=== PATIENT | male | born 1990 | race Caucasian/White ===

== ENCOUNTER 2016-09-25 15:09 | Emergency (ER) | payer SELFPAY ==
[~2016-09-25] VITALS: Ht 180.3 cm; Wt 92.0 kg
[~2016-09-25 15:09] MED LIST: DICL75 PO
[2016-09-25 15:15] VITALS: BP 151/90; PULSE 71; RESP 16; TEMP 98.5; O2SAT 98
--- NOTE | 2016-09-25 16:04 | PD ---
HPI Chief Complaint: Laceration/Skin Injury Time Seen by Provider: 15:59 Travel History International Travel<30 days: No Contact w/Intl Traveler<30days: No Traveled to known affect area: No History of Present Illness HPI 25-year-old male presents to the emergency room for evaluation of laceration to the left lateral eyebrow that occurred earlier today. Patient was standing about 3 feet up on a ladder when the ladder broke. He fell backwards and landed on his buttocks. He denies hitting his head or loss of consciousness. The ladder subsequently fell on top of him striking him in the face and cutting his eye. Patient went home and took a shower and realized that the laceration may need to be repaired so he came to the emergency room. Last tetanus was 2 months ago. Denies chronic medical conditions or daily medications. PFSH Past Medical History Medical History: Denies Significant Hx Diminished Hearing: No Tetanus Vaccination: < 5 Years ?: Not Past Surgical History Surgical History: No Previous Surgery Social History Alcohol Use: Yes Tobacco Use: No Substance Use: No Allergies-Medications (Allergen,Severity, Reaction): Coded Allergies: No Known Allergies (Verified , 09/25/16) Reported Meds & Prescriptions Reported Meds & Active Scripts Active No Active Prescriptions or Reported Medications Review of Systems Except as stated in HPI: all other systems reviewed are Neg Physical Exam Narrative GENERAL: Well-nourished, well-developed male in no acute distress. Afebrile. Ambulatory. SKIN: Focused skin assessment warm/dry. There is a 3 cm well approximated laceration to the left lateral eyebrow. Nonbleeding. HEAD: Normocephalic. EYES: No scleral icterus. No injection or drainage. EARS: Bilateral pinnae and external canals appear within normal limits. Bilateral tympanic membranes without erythema, dullness or perforation. No hemotympanum. NECK: Supple, trachea midline. No JVD or lymphadenopathy. CARDIOVASCULAR: Regular rate and rhythm without murmurs, gallops, or rubs. RESPIRATORY: Breath sounds equal bilaterally. No accessory muscle use. Data Data Last Documented VS Vital Signs Date Time Temp Pulse Resp B/P Pulse Ox O2 Delivery O2 Flow Rate FiO2 09/25/16 15:15 98.5 71 16 151/90 98 MDM Medical Decision Making Medical Screen Exam Complete: Yes Emergency Medical Condition: Yes Medical Record Reviewed: Yes Differential Diagnosis Laceration, abrasion, skin tear Narrative Course 25-year-old male presents to the emergency room for evaluation of laceration to the left lateral eyebrow that occurred earlier today. Patient states the ladder struck him on the face. He denies loss of consciousness. Tetanus is up- to-date. Physical exam reveals a 3 cm well-approximated laceration to the left lateral eyebrow. Laceration was thoroughly cleansed and repaired, see procedure note for details. Patient discharged with wound care instructions and told to follow-up with a primary care physician or return for worsening symptoms. He understands and agrees to plan. Diagnosis Primary Impression: Laceration of left eyebrow without complication Qualified Code: S01.112A - Laceration of left eyebrow without complication, initial encounter Referrals: Primary Care Physician Patient Instructions: General Instructions, Laceration (ED) Additional Instructions: Rest and drink plenty of fluids. Keep wound clean and dry. Apply triple antibiotic ointment daily. Sutures out in 5 days. Take ibuprofen with food as directed, as needed for pain. Follow-up with a primary care physician. Return to the emergency room for worsening symptoms. Scripts No Active Prescriptions or Reported Meds Disposition: 01 DISCHARGE HOME Condition: Stable Di Manzanares Sep 25, 2016 16:04
== END 2016-09-25 16:46 | disposition home or self-care (01) ==
LOC: PHEFT 15:09
DX: S01.112A Laceration without foreign body of left eyelid and periocular area, initial encounter (principal); W20.8XXA Other cause of strike by thrown, projected or falling object, initial encounter
CPT/HCPCS: 12013

== ENCOUNTER 2016-09-30 16:04 | Emergency (ER) | payer OTHER ==
[~2016-09-30] VITALS: Ht 182.9 cm; Wt 96.1 kg
[2016-09-30 16:12] VITALS: BP 141/76; PULSE 62; RESP 18; TEMP 98.4; O2SAT 99
--- NOTE | 2016-09-30 16:18 | PD ---
HPI Chief Complaint: Laceration/Skin Injury Time Seen by Provider: 16:11 Travel History International Travel<30 days: No Contact w/Intl Traveler<30days: No Traveled to known affect area: No History of Present Illness HPI The patient is a 25-year-old male who presents emergency department for suture removal. The patient has sutures placed on September 25, is here for removal. He denies any dehiscence of the wound and denies any bleeding or drainage. Tetanus is up-to-date. He denies any other complaints. History Past Medical History Medical History: Denies Significant Hx Past Surgical History Surgical History: No Previous Surgery Social History Alcohol Use: Yes (WEEKENDS) Tobacco Use: No Allergies-Medications (Allergen,Severity, Reaction): Coded Allergies: No Known Allergies (Verified , 09/25/16) Reported Meds & Prescriptions Reported Meds & Active Scripts Active No Active Prescriptions or Reported Medications Review of Systems HENT: No: Headaches, Lightheadedness Gastrointestinal: No: Nausea, Vomiting Skin: Positive Other (patient is here for suture removal, denies any dehiscence or bleeding) Neurologic: No: Headache, Change in Mentation Physical Exam Narrative GENERAL: Awake, alert, very pleasant 25-year-old male who appears his stated age and is in no acute respiratory distress. SKIN: Focused skin assessment warm/dry. [address] in the left eyebrow in a linear transverse laceration which is well-healed without any dehiscence. HEAD: Atraumatic. Normocephalic. [address] in the left eyebrow with no dehiscence or drainage. EYES: Pupils equal and round. No scleral icterus. No injection or drainage. NECK: Trachea midline. No JVD. MUSCULOSKELETAL: No obvious deformities. No clubbing. No cyanosis. No edema. NEUROLOGICAL: Awake and alert. No obvious cranial nerve deficits. Motor grossly within normal limits. Normal speech. PSYCHIATRIC: Appropriate mood and affect; insight and judgment normal. Data Data Last Documented VS Vital Signs Date Time Temp Pulse Resp B/P Pulse Ox O2 Delivery O2 Flow Rate FiO2 09/30/16 16:12 98.4 62 18 141/76 99 MDM Medical Decision Making Medical Screen Exam Complete: Yes Emergency Medical Condition: Yes Medical Record Reviewed: Yes Differential Diagnosis Differential diagnosis includes wound reevaluation, wound dehiscence, laceration recheck, suture removal. Narrative Course The patient's sutures were removed with a #11 incisional blade and Adson's forceps. There is no wound dehiscence. The patient tolerated the procedure without difficulty. Polysporin was applied to the wound. Diagnosis Primary Impression: Visit for suture removal Referrals: Primary Care Physician as needed Patient Instructions: General Instructions, Stitches Removal (ED) Departure Forms: Tests/Procedures Additional Instructions: Follow-up with your primary physician. Wound care instructions. Return if symptoms worsen or progress. Scripts No Active Prescriptions or Reported Meds Disposition: 01 DISCHARGE HOME Condition: Stable Edy Shelton MD Sep 30, 2016 16:18
== END 2016-09-30 16:30 | disposition home or self-care (01) ==
LOC: PHEFT 16:04
DX: S01.112D Laceration without foreign body of left eyelid and periocular area, subsequent encounter (principal); Z48.02 Encounter for removal of sutures; X58.XXXD Exposure to other specified factors, subsequent encounter
CPT/HCPCS: 99281

== ENCOUNTER 2017-02-12 18:29 | Emergency (ER) | payer SELFPAY ==
[~2017-02-12] VITALS: Ht 180.3 cm; Wt 93.0 kg
[2017-02-12 18:30] VITALS: BP 145/87; PULSE 53; RESP 16; TEMP 98.1; O2SAT 100
[2017-02-12] MEDS ORDERED: SODIUM CHLOR 0.9% 1000 ML INJ 1,000 ML IV ONE (19:23)
[2017-02-12] MEDS ORDERED: SODIUM CHLORIDE 0.9% FLUSH 10 ML FLUSH IVF PRN (19:30)
--- NOTE | 2017-02-12 19:38 | PD ---
HPI Chief Complaint: GI Complaint Time Seen by Provider: 19:35 Travel History International Travel<30 days: No Contact w/Intl Traveler<30days: [place] Traveled to: [place] Traveled to known affect area: Yes History of Present Illness HPI 26-year-old male presents to the emergency department for evaluation of diarrhea for one week. Patient just came back from [facility] yesterday. He states he felt feverish and dizzy up until 2 days ago, but those symptoms have resolved. He is able to eat without difficulty. He reports at least 5 episodes of diarrhea in the past 24 hours. He states his stool is liquid at this time. No mucus or blood in his stool. He does complain of abdominal cramping and burning. Patient denies any chest pain or shortness of breath. No current fevers or chills. No current headache or visual changes. No dizziness. No nausea or vomiting. Patient states that he did take some antidiarrheal medication which did help briefly, but the diarrhea return. He has no chronic medical problems and takes no prescribed medications. Severity is moderate. No exacerbating factors. Anti-diarrhea medication will temporarily alleviate the symptoms. [facility] Past Medical History Medical History: Denies Significant Hx Diminished Hearing: No Influenza Vaccination: No Past Surgical History Surgical History: No Previous Surgery Social History Alcohol Use: Yes (social) Tobacco Use: No Substance Use: No Allergies-Medications (Allergen,Severity, Reaction): Coded Allergies: No Known Allergies (Verified Adverse Reaction, Unknown, 02/12/17) Reported Meds & Prescriptions Reported Meds & Active Scripts Active No Active Prescriptions or Reported Medications Review of Systems Except as stated in HPI: all other systems reviewed are Neg Physical Exam Narrative GENERAL: Well-nourished, well-developed male patient, ambulatory. Afebrile. SKIN: Focused skin assessment warm/dry. HEAD: Normocephalic. Atraumatic. EYES: No scleral icterus. No injection or drainage. NECK: Supple, trachea midline. No JVD or lymphadenopathy. CARDIOVASCULAR: Regular rate and rhythm without murmurs, gallops, or rubs. RESPIRATORY: Breath sounds equal bilaterally. No accessory muscle use. Lungs sounds are clear to auscultation GASTROINTESTINAL: Abdomen soft, non-tender, nondistended. No abdominal tenderness to palpation. MUSCULOSKELETAL: No cyanosis, or edema. BACK: Nontender without obvious deformity. No CVA tenderness. Data Data Last Documented VS Vital Signs Date Time Temp Pulse Resp B/P (MAP) Pulse Ox O2 Delivery O2 Flow Rate FiO2 02/12/17 18:30 98.1 53 16 145/87 (106) 100 Room Air Orders Orders Complete Blood Count With Diff (02/12/17 19:23) Comprehensive Metabolic Panel (02/12/17 19:23) Lipase (02/12/17:23) Iv Access Insert/Monitor (02/12/17:) Ecg Monitoring (02/12/17:23) Oximetry (02/12/17:23) Sodium Chlor 0.9% 1000 Ml Inj (Ns 1000 M (02/12/17 19:23) Sodium Chloride 0.9% Flush (Ns Flush) (02/12/17 19:30) Enteric Path (Stool) (02/12/17 19:23) Stool Ova And Parasite Screen (02/12/17 19:23) Ciprofloxacin (Cipro) (02/12/17 21:15) Labs Laboratory Tests Test 02/12/17 20:00 White Blood Count 7.8 TH/MM3 Red Blood Count 5.12 MIL/MM3 Hemoglobin 15.6 GM/DL Hematocrit 45.0 % Mean Corpuscular Volume 88.0 FL Mean Corpuscular Hemoglobin 30.4 PG Mean Corpuscular Hemoglobin Concent 34.6 % Red Cell Distribution Width 13.0 % Platelet Count 207 TH/MM3 Mean Platelet Volume 8.8 FL Neutrophils (%) (Auto) 54.1 % Lymphocytes (%) (Auto) 30.3 % Monocytes (%) (Auto) 12.1 % Eosinophils (%) (Auto) 2.9 % Basophils (%) (Auto) 0.6 % Neutrophils # (Auto) 4.2 TH/MM3 Lymphocytes # (Auto) 2.4 TH/MM3 Monocytes # (Auto) 0.9 TH/MM3 Eosinophils # (Auto) 0.2 TH/MM3 Basophils # (Auto) 0.0 TH/MM3 CBC Comment DIFF FINAL Differential Comment Blood Urea Nitrogen 12 MG/DL Creatinine 1.12 MG/DL Random Glucose 81 MG/DL Total Protein 7.3 GM/DL Albumin 4.0 GM/DL Calcium Level 8.9 MG/DL Alkaline Phosphatase 75 U/L Aspartate Amino Transf (AST/SGOT) 27 U/L Alanine Aminotransferase (ALT/SGPT) 42 U/L Total Bilirubin 0.5 MG/DL Sodium Level 139 MEQ/L Potassium Level 3.5 MEQ/L Chloride Level 104 MEQ/L Carbon Dioxide Level 28.1 MEQ/L Anion Gap 7 MEQ/L Estimat Glomerular Filtration Rate 78 ML/MIN Lipase 248 U/L [facility] Medical Decision Making Medical Screen Exam Complete: Yes Emergency Medical Condition: Yes Medical Record Reviewed: Yes Differential Diagnosis Traveler's diarrhea versus parasite versus electrolyte abnormality versus dehydration Narrative Course 26 year-old male presents to the emergency department for evaluation of diarrhea for one week. He returned from [facility] yesterday. He is afebrile. He has no upper respiratory symptoms. IV access established. CBC, CMP, lipase, stool for enteric pathogens, stool for ova and parasites are ordered and pending. Patient is given normal saline 1 L IV bolus. CBC is unremarkable. CMP is unremarkable. Lipase is 248. Unfortunately, patient was unable to give us a stool sample while he was in the emergency department. I will treat the patient for traveler's diarrhea with ciprofloxacin. He is given his first dose here. I did instruct to return here for any acute worsening of symptoms including fevers, vomiting, symptoms of dehydration, etc. Patient verbalizes agreement and understanding. The patient was discharged in stable condition with instructions, including return instructions and follow up instructions. Diagnosis Primary Impression: Traveler's diarrhea Referrals: Primary Care Physician call for appointment Patient Instructions: Acute Diarrhea (ED), General Instructions, Traveler's Diarrhea (ED) Additional Instructions: Take antibiotic as directed until gone. This is free of [employer]. Brat diet. Follow-up with your primary care physician. Return to the emergency department for any acute worsening of symptoms. Med/Other Pt SpecificInfo: Prescription(s) given Scripts Ciprofloxacin (Cipro) 500 Mg Tab 500 MG PO BID for Infection for 10 Days, #20 TAB 0 Refills Prov: Emani Wiggins 02/12/17 Disposition: 01 DISCHARGE HOME Condition: Stable Emani Wiggins Feb 12, 2017 19:38
[2017-02-12 20:37] LABS: AUTOMATED NEUTROPHIL # 4.2 TH/MM3 (1.8-7.7); BASOPHIL % 0.6 % (0.0-2.0); EOSINOPHIL # 0.2 TH/MM3 (0-0.4); EOSINOPHIL % 2.9 % (0.0-4.0); HEMO FLAGS DIFF FINAL; LYMPH % 30.3 % (9.0-44.0); LYMPHOCYTE # 2.4 TH/MM3 (1.0-4.8); MEAN CORPUSCULAR HEMOGLOBIN 30.4 PG (27.0-34.0); MEAN CORPUSCULAR HGB CONC 34.6 % (32.0-36.0); MONO % 12.1 % (0.0-8.0); NEUT % 54.1 % (16.0-70.0); PLATELET COUNT 207 TH/MM3 (150-450); RED BLOOD COUNT 5.12 MIL/MM3 (4.50-5.90); WHITE BLOOD COUNT 7.8 TH/MM3 (4.0-11.0)
[2017-02-12 20:52] LABS: ANION GAP 7 MEQ/L (5-15); AST (GOT) 27 U/L (15-37); BICARBONATE 28.1 MEQ/L (21.0-32.0); BLOOD UREA NITROGEN 12 MG/DL (7-18); CHLORIDE 104 MEQ/L (98-107); GLOMERULAR FILTRATION RATE 78 ML/MIN (>89); POTASSIUM 3.5 MEQ/L (3.5-5.1); SODIUM (NA) 139 MEQ/L (136-145)
[2017-02-12 20:54] LABS: ALT (GPT) 42 U/L (12-78)
[2017-02-12 20:56] LABS: ALKALINE PHOSPHATASE 75 U/L (45-117); TOTAL BILIRUBIN ADULT 0.5 MG/DL (0.2-1.0)
[2017-02-12] MEDS ORDERED: CIPR-9 PO (21:14)
[2017-02-12] MEDS ORDERED: CIPROFLOXACIN 500 MG TAB PO ONE (21:15)
== END 2017-02-12 21:38 | disposition home or self-care (01) ==
LOC: NEPE 18:29
DX: R19.7 Diarrhea, unspecified (principal)
CPT/HCPCS: 80053; 83690; 85025; 96360; 96361; 99284; J7030

== ENCOUNTER 2017-05-16 00:15 | Emergency (ER) | payer SELFPAY ==
[~2017-05-16] VITALS: Ht 180.3 cm; Wt 89.0 kg
[~2017-05-16 00:15] MED LIST changes: +CIPR-9 PO; -DICL75 PO
[2017-05-16 00:17] VITALS: BP 162/99; PULSE 66; RESP 16; TEMP 97.9; O2SAT 99
[2017-05-16] MEDS ORDERED: MAGICADU2 SWISH-SWAL (02:10)
[2017-05-16] MEDS ORDERED: AMOX500T PO (02:10)
[2017-05-16] MEDS ORDERED: ALUMINUM/MAGNESIUM/SIMETH 30 ML CUP PO ONE (02:15)
[2017-05-16] MEDS ORDERED: LIDOCAINE VISCOUS 2% SOLN 15 ML UDC SWISH-SWAL ONE (02:15)
--- NOTE | 2017-05-16 02:15 | PD ---
HPI Chief Complaint: ENT Complaint Time Seen by Provider: 02:09 Travel History International Travel<30 days: No Contact w/Intl Traveler<30days: No Traveled to known affect area: No History of Present Illness HPI 26-year-old white male presents emergency department with complaints of sore throat. He states that he had flulike symptoms earlier in the week on Friday. These have improved. He still persists with sore throat. Symptoms are moderate. Worse with swallowing. No alleviating factors. Patient did have myalgias, arthralgias and general malaise earlier. Positive congestion and cough. PFSH Past Medical History Medical History: Denies Significant Hx Diminished Hearing: No Immunizations Current: Yes Tetanus Vaccination: < 5 Years Influenza Vaccination: No Past Surgical History Surgical History: No Previous Surgery Social History Alcohol Use: Yes (social) Tobacco Use: No Substance Use: No Allergies-Medications (Allergen,Severity, Reaction): Coded Allergies: No Known Allergies (Verified Adverse Reaction, Unknown, 05/16/17) Reported Meds & Prescriptions Reported Meds & Active Scripts Active Magic Mouthwash Adult Liq (Multi-Ingredient Mouthwash/Gargle) 120 Ml Susp 5 Ml SWISH-SWAL ACHS Each 5mL contains: Nystatin 200,000units, Diphenhydramine 4.25mg, Viscous Lidocaine 10mg, Osorio syrup 0.8 mL Amoxicillin 500 Mg Tab 500 Mg PO BID 10 Days Cipro (Ciprofloxacin HCl) 500 Mg Tab 500 Mg PO BID 10 Days Review of Systems Except as stated in HPI: all other systems reviewed are Neg General / Constitutional: No: Fever, Chills Eyes: No: Visual changes HENT: Positive: Sore Throat, No: Headaches Cardiovascular: No: Chest Pain or Discomfort Respiratory: Positive: Cough, No: Shortness of Breath Gastrointestinal: No: Abdominal Pain Genitourinary: No: Dysuria Musculoskeletal: No: Pain Skin: No Rash Neurologic: No: Weakness Psychiatric: No: Depression Endocrine: No: Polydipsia Hematologic/Lymphatic: No: Easy Bruising Physical Exam Narrative GENERAL: Well-developed, well-nourished in no acute distress. Nontoxic appearing. HEAD: Normocephalic, atraumatic. EYES: Pupils equal round and reactive. Extraocular motions intact. No scleral icterus. No injection or drainage. ENT: TMs clear without erythema. The external auditory canals clear. Nose: clear . Posterior pharynx is pink and moist. No tonsillar edema or exudate. Uvula midline. Airway patent. NECK: Trachea midline.Supple, nontender, moves head freely. No central bony tenderness or spasm. CARDIOVASCULAR: Regular rate and rhythm without murmurs, gallops, or rubs. RESPIRATORY: Clear to auscultation. Breath sounds equal bilaterally. No wheezes , rales, or rhonchi. GASTROINTESTINAL: Abdomen soft, non-tender, nondistended. No hepato-splenomegaly , or palpable masses. No guarding. EXTREMITIES: No clubbing, cyanosis, or edema. No joint tenderness, effusion, or edema noted. BACK: Nontender without deformity or crepitance. No flank tenderness. Data Data Last Documented VS Vital Signs Date Time Temp Pulse Resp B/P (MAP) Pulse Ox O2 Delivery O2 Flow Rate FiO2 05/16/17 00:17 97.9 66 16 162/99 (120) 99 Orders Orders Ed Discharge Order (05/16/17 02:10) Al-Mag Hy-Si 40-40-4 Mg/Ml Liq (Mag-Al P (05/16/17 02:15) Lidocaine 2% Viscous (Xylocaine 2% Visco (05/16/17 02:15) MDM Medical Decision Making Medical Screen Exam Complete: Yes Emergency Medical Condition: Yes Medical Record Reviewed: Yes Differential Diagnosis MDM: High Differential diagnoses: Strep throat, viral pharyngitis, mono, peritonsillar abscess, retropharyngeal abscess, Uday's angina influenza Narrative Course Patient is given amoxicillin 500 mg p.o. and viscous lidocaine with Maalox. This acute pharyngitis Diagnosis Primary Impression: Acute pharyngitis Patient Instructions: General Instructions Departure Forms: Tests/Procedures, Work Release Special Instructions: No work 3 days. Additional Instructions: Rest. Force fluids. Saltwater gargles. Tylenol and Advil. Chloraseptic [place] Cepastat lozenge. Amoxicillin and Magic mouthwash. Follow-up with a primary care doctor in one week. Return to the ER if any problems. Med/Other Pt SpecificInfo: Prescription(s) given Scripts Fvhrcxxe-Xypglphpijqzxrs-Mlrpnbjpr Liq (Magic Mouthwash Adult Liq) 120 Ml Susp 5 ML SWISH-SWAL ACHS for Mouth sores, #120 ML 0 Refills Each 5mL contains: Nystatin 200,000units, Diphenhydramine 4.25mg, Viscous Lidocaine 10mg, Osorio syrup 0.8 mL Prov: Giles Beckford MD 05/16/17 Amoxicillin (Amoxicillin) 500 Mg Tab 500 MG PO BID for Infection for 10 Days, #20 TAB 0 Refills Prov: Giles Beckford MD 05/16/17 Disposition: 01 DISCHARGE HOME Condition: Stable Ron Khan May 16, 2017 02:15
== END 2017-05-16 02:37 | disposition home or self-care (01) ==
LOC: NEPD 00:15
DX: J02.9 Acute pharyngitis, unspecified (principal); M79.1 Myalgia; M25.50 Pain in unspecified joint; R53.81 Other malaise; R09.81 Nasal congestion; R05 Cough
CPT/HCPCS: 99283